=== PATIENT | female | born 1970 | race Caucasian/White ===

== ENCOUNTER → 2016-07-31 | Outpatient (REF) | payer OTHER ==
[~2016-07-31] MED LIST: KLON0.5T PO; PAXI20TA3 PO; TRAZ50TA2 PO; VENL37CA PO; VENL37TA PO; VENL75CA PO
== END ==
LOC: M LAB REF 14:12
PROVIDERS: ATTEND Physician Assistant
DX: N89.8 Other specified noninflammatory disorders of vagina (principal)

== ENCOUNTER → 2016-08-21 | Outpatient (CLI) | payer OTHER ==
--- NOTE | 2016-08-21 09:07 | REPMRS ---
Patient History The patient states she had a clinical breast exam in Family history of prostate cancer in maternal grandfather at age 50 or over. Benign US guided breast biopsy of the right breast, August 09, 2015. Digital Woman Screen Mammo: August 21, 2016 - Exam #: [id number] Bilateral CC and MLO view(s) were taken. Technologist: Dianna Espinal, Technologist Prior study comparison: August 09, 2015, right breast digital mammo diagnostic unilateral, performed at [facility]. June 12, 2014, digital bilateral screening mammo, performed at [facility]. May 19, 2013, digital woman screen mammo performed at [facility]. FINDINGS: The breast tissue is heterogeneously dense. This may lower the sensitivity of mammography. There is a moderate amount of heterogeneously dense fibroglandular tissue which is fairly symmetric. There is a needle biopsy marker clip in the right breast. There is no interval development of dominant mass, architectural distortion, or clustered microcalcification typical of malignancy. There has been no change in the appearance of the mammogram from the prior studies. ASSESSMENT: BI-RADS/ACR category 1 mammogram. Negative. Recommendation Routine screening mammogram of both breasts in 1 year (for women over age 40). This mammogram was interpreted with the aid of an FDA-approved computer-aided dectection system. Electronically Signed By: Kyle Power MD 08/21/16 0906
== END ==
LOC: M WHC 08:15
PROVIDERS: ATTEND Nurse Practitioner Women's Health
DX: Z12.31 Encounter for screening mammogram for malignant neoplasm of breast (principal)

== ENCOUNTER → 2016-08-21 | Outpatient (REF) | payer OTHER | LOC: M SFHCWAGY 11:49 | PROVIDERS: ATTEND Nurse Practitioner Women's Health | DX: Z11.3 Encounter for screening for infections with a predominantly sexual mode of transmission (principal); A59.01 Trichomonal vulvovaginitis ==

== ENCOUNTER → 2017-03-26 | Outpatient (REF) | payer OTHER | LOC: M LAB REF 07:45 | PROVIDERS: ATTEND Nurse Practitioner Adult Health | DX: N64.3 Galactorrhea not associated with childbirth (principal) ==

== ENCOUNTER → 2017-08-23 | Outpatient (REF) | payer OTHER ==
[2017-08-23 17:46] LABS: FOLLICLE STIMULATING HORMONE 26.3 mIU/mL; LUTEINIZING HORMONE 32.9 mIU/mL
== END ==
LOC: M LAB REF 16:22
DX: N64.3 Galactorrhea not associated with childbirth (principal)

== ENCOUNTER → 2017-08-24 | Outpatient (REF) | payer OTHER | LOC: M SFHCWAGY 15:57 | DX: Z12.4 Encounter for screening for malignant neoplasm of cervix (principal) ==

== ENCOUNTER → 2017-08-24 | Outpatient (CLI) | payer OTHER | LOC: M WHC 15:08 | DX: Z12.31 Encounter for screening mammogram for malignant neoplasm of breast (principal) ==

== ENCOUNTER → 2018-11-07 | Outpatient (CLI) | payer OTHER ==
--- NOTE | 2018-11-07 16:29 | REPMRS ---
Patient History The patient states she had a clinical breast exam in 10/2018. Family history of prostate cancer at age 50 or over in maternal grandfather, breast cancer under age 50 in paternal cousin. Benign US guided breast biopsy of the right breast, August 09, 2015. Took hormonal contraceptives for 1 year. Digital Woman Screen Mammo: November 07, 2018 - Exam #: [id number] Bilateral CC and MLO view(s) were taken. Technologist: Anila Israel, Technologist Prior study comparison: August 24, 2017, digital woman screen mammo performed at [facility]. August 21, 2016, digital woman screen mammo performed at [facility]. August 09, 2015, right breast digital mammo diagnostic unilateral, performed at [facility]. May 19, 2013, digital woman screen mammo performed at [facility] [facility]. FINDINGS: The breast tissue is heterogeneously dense. This may lower the sensitivity of mammography. There is a needle biopsy marker again noted in the right breast. There is a moderate amount of heterogeneously dense fibroglandular tissue which is fairly symmetric. There is no interval development of dominant mass, architectural distortion, or clustered microcalcification typical of malignancy. There has been no change in the appearance of the mammogram from the prior studies. 3-D tomosynthesis shows no additional findings. Assessment: BI-RADS/ACR category 2 mammogram. Benign Findings. Recommendation Routine screening mammogram of both breasts in 1 year (for women over age 40). This patient's Lifetime Breast Cancer RIsk is estimated at 10.9 %. This mammogram was interpreted with the aid of an FDA-approved computer-aided dectection system. Electronically Signed By: Kyle Power MD 11/07/18 [id number]
== END ==
LOC: M WHC 15:12
PROVIDERS: ATTEND Nurse Practitioner Family
DX: Z12.31 Encounter for screening mammogram for malignant neoplasm of breast (principal)

== ENCOUNTER → 2018-11-07 | Outpatient (REF) | payer OTHER ==
[2018-11-12 16:32] LABS: HPV HYBRID CAPTURE II Negative (Negative)
== END ==
LOC: M SFHCWAGY 15:36
PROVIDERS: ATTEND Nurse Practitioner Family
DX: Z12.4 Encounter for screening for malignant neoplasm of cervix (principal)
CPT/HCPCS: 87624; G0123

== ENCOUNTER → 2020-02-13 | Outpatient (CLI) | payer OTHER ==
--- NOTE | 2020-02-13 15:01 | REPMRS ---
Patient History Family history of prostate cancer at age 50 or over in maternal grandfather, breast cancer under age 50 in paternal cousin. Benign US guided breast biopsy of the right breast, August 09, 2015. Took hormonal contraceptives for 1 year. Digital Woman Screen Mammo: February 13, 2020 - Exam #: [id number] Bilateral CC and MLO view(s) were taken. Technologist: Jasmin London, Technologist Prior study comparison: November 07, 2018, bilateral digital woman screen mammo performed at [facility]. August 24, 2017, digital woman screen mammo performed at [facility]. August 21, 2016, digital woman screen mammo performed at [facility]. FINDINGS: There are scattered fibroglandular densities. The Volpara volumetric breast density category is: B. There is a moderate amount of residual fibroglandular tissue which is fairly symmetric. There is no interval development of dominant mass, architectural distortion, or grouped microcalcification typical of malignancy. There has been no change in the appearance of the mammogram from the prior studies. 3-D tomosynthesis shows no additional findings. Assessment: BI-RADS/ACR category 1 mammogram. Negative Mammogram. Recommendation Routine screening mammogram of both breasts in 1 year (for women over age 40). This patient's Lifetime Breast Cancer RIsk is estimated at 10.7 %. This mammogram was interpreted with the aid of an FDA-approved computer-aided dectection system. Electronically Signed By: Kyle Power MD 02/13/20 0678
== END ==
LOC: M WHC 13:24
PROVIDERS: ATTEND Nurse Practitioner Family
DX: Z12.31 Encounter for screening mammogram for malignant neoplasm of breast (principal); Z92.0 Personal history of contraception

== ENCOUNTER → 2020-05-20 | Outpatient (REF) | payer OTHER ==
[2020-05-21 10:15] LABS: H PYLORI QUALITATIVE IgG NEGATIVE (NEGATIVE)
[2020-05-22 18:08] LABS: Lyme Disease IgG/IgM Antibodie <0.91 ISR (0.00-0.90); Lyme Disease IgM Ab Quantitati <0.80 index (0.00-0.79)
== END ==
LOC: M LAB REF 16:37
PROVIDERS: ATTEND Nurse Practitioner Adult Health
DX: M25.50 Pain in unspecified joint (principal); R10.9 Unspecified abdominal pain

== ENCOUNTER → 2020-06-10 | Outpatient (REF) | payer OTHER | LOC: M SFHCWAGY 17:15 | PROVIDERS: ATTEND Obstetrics & Gynecology | DX: N93.9 Abnormal uterine and vaginal bleeding, unspecified (principal) ==

== ENCOUNTER → 2020-08-16 | Outpatient (CLI) | payer OTHER ==
[~2020-08-16] MED LIST changes: +BLAC40CA PO; +D31000TA2 PO; +LEXA1TAB2 PO; +PERCOCET PO; +THERTAB52 PO
== END ==
LOC: M LABSMTC 09:38
PROVIDERS: ATTEND Anesthesiology
DX: Z01.812 Encounter for preprocedural laboratory examination (principal); Z20.822 Contact with and (suspected) exposure to COVID-19

== ENCOUNTER → 2020-08-30 | Outpatient (CLI) | payer OTHER ==
[~2020-08-30] MED LIST changes: -PERCOCET PO
== END ==
LOC: M LABSMTC 11:33
PROVIDERS: ATTEND Anesthesiology
DX: Z01.812 Encounter for preprocedural laboratory examination (principal); Z20.822 Contact with and (suspected) exposure to COVID-19

== ENCOUNTER 2020-09-04 11:08 | Day surgery (SDC) | payer OTHER ==
[~2020-09-04] VITALS: Ht 152.4 cm; Wt 78.9 kg
[~2020-09-04 11:08] MED LIST changes: +LIDOCAINE 1% MDV 20ML VIAL SQ PRN; +LIDOCAINE 2% 100MG/5ML SDV (FOR ANES.) As Ordered ONE; +LR 1,000 ML IV ONE; +MIDAZOLAM INJ 2MG/2ML VIAL (J2250 PER 1MG) As Ordered ONE; +ONDANSETRON 4MG/2ML VIAL As Ordered ONE; +SILVER NITRATE APPLICATOR As Ordered ONE; +dexameTHASONE 4 MG/ML 1ML VIAL (J1100 PER 1MG) As Ordered ONE; +fentaNYL 100 MCG/2 ML INJECTION (J3010) As Ordered ONE; +propofoL 200 MG/20 ML VIAL As Ordered ONE
[2020-09-04 11:48] LABS: HEMOGLOBIN 13.9 g/dl (12.0-15.5); MEAN CORPUSCULAR HEMOGLOBIN 29.7 pg (27.0-33.0); MEAN CORPUSCULAR HGB CONC 33.9 g/dl (32.0-36.5); MEAN CORPUSCULAR VOLUME 87.6 fl (80.0-96.0); PLATELET COUNT, AUTOMATED 267 10^3/uL (150-450); RED BLOOD COUNT 4.68 10^6/uL (4.00-5.40); WHITE BLOOD COUNT 6.3 10^3/uL (4.0-10.0)
[2020-09-04] MEDS ORDERED: KETOROLAC 60MG 2ML VIAL As Ordered ONE (13:24)
[2020-09-04] MEDS ORDERED: propofoL 200 MG/20 ML VIAL As Ordered ONE (13:24)
--- NOTE | 2020-09-04 13:59 | ROOPDOC ---
[facility] Report Of Operation Report of Operation DATE OF OPERATION: 09/04/2020 PREOPERATIVE DIAGNOSIS: Abnormal uterine bleeding. POSTOPERATIVE DIAGNOSIS: Abnormal uterine bleeding PROCEDURES PERFORMED: Hysteroscopy dilatation and curettage (D&C), NovaSure endometrial ablation. SURGEON: Letty Dozier DO MAP CLERK: None. ANESTHESIA: General via laryngeal mask airway (LMA). SPECIMEN(S) SENT TO PATHOLOGY: Endometrial curettings. ESTIMATED BLOOD LOSS: 5 mL. FLUIDS REPLACED: 500 mL lactated ringers. DRAINS: In and out catheter. URINE OUTPUT: 50 mL. COMPLICATIONS: None. PREOPERATIVE ANTIBIOTICS: None indicated. INTRAOPERATIVE FINDINGS: Cavity length was 6 cm. Cavity width 3.9 cm. Power 129 calvin. Radiofrequency ablation time 47 seconds. No intrauterine masses on hysteroscopy examination. No evidence of uterine perforation post ablation. INDICATIONS FOR PROCEDURE: Abnormal uterine bleeding/persistent postmenopausal bleeding. Previous endometrial biopsy reveals benign endometrium. DESCRIPTION OF PROCEDURE: The patient was counseled and consented on the risks, benefits, indications, and alternatives of the procedure. Informed consent was obtained. She was taken to the operating room with an IV running and positioned on the operating room table in the dorsal supine position. General anesthesia was administered and airway secured without any difficulty. She was positioned in the high lithotomy position. She was prepared and draped in the normal sterile fashion. The bladder was drained with a sterile in and out catheter. A sterile speculum was placed with good visualization of the cervix. The anterior lip of the cervix was grasped with a single-tooth tenaculum. Downward traction was applied. The cervix was sequentially dilated with Shaq dilators up to a #16. The uterus was sounded to 9 cm with a cervical length of 3.0 cm. The hysteroscope was placed transcervically into the intrauterine cavity with the findings noted above. No endometrial mass. Normal intrauterine cavity. The hysteroscope was removed. A sharp curettage was performed throughout the entire intrauterine cavity with minimal tissue return. The NovaSure device was placed transcervically into the intrauterine cavity and deployed in typical fashion. A cavity assessment was performed. The cavity assessment cleared and the ablation was activated. The radiofrequency ablation time was 31 seconds. The device was removed in typical fashion without any difficulty. The hysteroscope was placed transcervically into the intrauterine cavity. Excellent intrauterine distention was noted. No evidence of uterine perforation. Global ablation was noted throughout the cavity. The hysteroscope was removed. The single-tooth tenaculum was removed. The tenaculum sites were cauterized with silver nitrate. All instruments were removed from the vagina. The patient tolerated the entire procedure very well. She was transferred to the post anesthesia care unit (PACU) in good and stable condition. Sponge and instrument counts were correct per protocol. LETTY DOZIER DO Sep 04, 2020 13:59
[2020-09-04] MEDS ORDERED: PERCOCET 5MG/325MG TAB As Ordered ONE (14:14)
[2020-09-04] MEDS ORDERED: LR 1,000 ML IV SCH (14:15)
[2020-09-04] MEDS ORDERED: PERCOCET 5MG/325MG TAB PO PRN (14:15)
[2020-09-04] MEDS ORDERED: fentaNYL 100 MCG/2 ML INJECTION (J3010) IV PRN (14:15)
[2020-09-04] MEDS ORDERED: ONDANSETRON 4MG/2ML VIAL IV PRN (14:15)
[2020-09-04] MEDS ORDERED: METOCLOPRAMIDE INJ 10MG/2ML VIAL (J2765 PER 1) IV PRN (14:15)
[2020-09-04] MEDS ORDERED: PERCOCET PO (15:08)
[2020-09-04 15:13] VITALS: BP 129/76
[2020-09-05] MEDS ORDERED: LIDOCAINE 2% 100MG/5ML SDV (FOR ANES.) As Ordered ONE (12:25)
[2020-09-05] MEDS ORDERED: propofoL 200 MG/20 ML VIAL As Ordered ONE (12:25)
== END 2020-09-04 15:13 | disposition home or self-care (01) ==
LOC: M SDC 11:08
PROVIDERS: ATTEND Obstetrics & Gynecology
DX: N93.9 Abnormal uterine and vaginal bleeding, unspecified (principal); F41.9 Anxiety disorder, unspecified; F32.9 Major depressive disorder, single episode, unspecified; Z79.899 Other long term (current) drug therapy; F17.218 Nicotine dependence, cigarettes, with other nicotine-induced disorders
CPT/HCPCS: 36415; 58563; 81025; 85027; 86850; 86900; 86901; 88305; J1100; J1885; J2250; J2405; J3010

== ENCOUNTER → 2021-05-21 | Outpatient (REF) | payer OTHER ==
[~2021-05-21] MED LIST changes: -LIDOCAINE 1% MDV 20ML VIAL SQ PRN; -LIDOCAINE 2% 100MG/5ML SDV (FOR ANES.) As Ordered ONE; -LR 1,000 ML IV ONE; -MIDAZOLAM INJ 2MG/2ML VIAL (J2250 PER 1MG) As Ordered ONE; -ONDANSETRON 4MG/2ML VIAL As Ordered ONE; +PERCOCET PO; -SILVER NITRATE APPLICATOR As Ordered ONE; -dexameTHASONE 4 MG/ML 1ML VIAL (J1100 PER 1MG) As Ordered ONE; -fentaNYL 100 MCG/2 ML INJECTION (J3010) As Ordered ONE; -propofoL 200 MG/20 ML VIAL As Ordered ONE
== END ==
LOC: M LAB REF 16:34
PROVIDERS: ATTEND Nurse Practitioner Adult Health
DX: L81.8 Other specified disorders of pigmentation (principal)

== ENCOUNTER → 2021-05-23 | Outpatient (REF) | payer OTHER | LOC: M LAB REF 11:12 | PROVIDERS: ATTEND Nurse Practitioner Adult Health | DX: L68.0 Hirsutism (principal) ==

== ENCOUNTER → 2021-10-22 | Outpatient (CLI) | payer OTHER ==
[~2021-10-22] MED LIST changes: -D31000TA2 PO; +VITA100093 PO
== END ==
LOC: M WHC 10:31
PROVIDERS: ATTEND Obstetrics & Gynecology
DX: Z12.31 Encounter for screening mammogram for malignant neoplasm of breast (principal); N63.20 Unspecified lump in the left breast, unspecified quadrant

== ENCOUNTER → 2021-10-22 | Outpatient (REF) | payer OTHER | LOC: M SFHCWAGY 12:48 | PROVIDERS: ATTEND Obstetrics & Gynecology | DX: Z12.4 Encounter for screening for malignant neoplasm of cervix (principal) ==

== ENCOUNTER → 2021-10-29 | Outpatient (CLI) | payer OTHER | LOC: M WHC 10:55 | PROVIDERS: ATTEND Obstetrics & Gynecology | DX: R92.8 Other abnormal and inconclusive findings on diagnostic imaging of breast (principal); N60.12 Diffuse cystic mastopathy of left breast | CPT/HCPCS: 76642; 77065; G0279 ==

== ENCOUNTER → 2021-12-10 | Outpatient (REF) | payer OTHER ==
[2021-12-10 17:47] LABS: C REACTIVE PROTEIN QUANTITATIV 0.33 MG/DL (0.00-0.30); RHEUMATOID FACTOR QUANT < 10.0 IU/ML (<15.0)
== END ==
LOC: M LAB REF 16:51
PROVIDERS: ATTEND Physician Assistant Medical
DX: M79.7 Fibromyalgia (principal); R53.83 Other fatigue

== ENCOUNTER → 2022-05-21 | Outpatient (CLI) | payer OTHER | LOC: M PLAIMG 15:47 | PROVIDERS: ATTEND Physician Assistant Medical | DX: M25.532 Pain in left wrist (principal) ==

== ENCOUNTER → 2022-05-21 | Outpatient (CLI) | payer OTHER | LOC: M PLAIMG 15:45 | PROVIDERS: ATTEND Nurse Practitioner Adult Health | DX: M54.2 Cervicalgia (principal); M47.812 Spondylosis without myelopathy or radiculopathy, cervical region ==

== ENCOUNTER → 2022-09-15 | Outpatient (CLI) | payer OTHER ==
[~2022-09-15] MED LIST changes: +CYMB60CA4 PO; +GABA-282 PO; +LEXA1TAB2; +OZEM2INJ; +TRAZ-252 PO
== END ==
LOC: M LABSMTC 08:57
PROVIDERS: ATTEND Anesthesiology
DX: Z01.812 Encounter for preprocedural laboratory examination (principal); Z11.52 Encounter for screening for COVID-19

== ENCOUNTER 2022-09-18 06:19 | Day surgery (SDC) | payer OTHER ==
[~2022-09-18] VITALS: Ht 152.4 cm; Wt 75.3 kg
[~2022-09-18 06:19] MED LIST changes: +NS 1,000 ML IV ONE
[2022-09-18] MEDS ORDERED: propofoL 200 MG/20 ML VIAL As Ordered ONE ×2 (07:07→07:52)
[2022-09-18] MEDS ORDERED: LIDOCAINE 2% 100MG/5ML SDV (FOR ANES.) As Ordered ONE (07:07)
[2022-09-18 08:20] VITALS: BP 112/71
== END 2022-09-18 08:27 | disposition home or self-care (01) ==
LOC: M OPP 06:19
PROVIDERS: ATTEND Surgery
DX: Z12.11 Encounter for screening for malignant neoplasm of colon (principal); Z80.0 Family history of malignant neoplasm of digestive organs; K64.0 First degree hemorrhoids; F32.9 Major depressive disorder, single episode, unspecified; F41.9 Anxiety disorder, unspecified; G43.909 Migraine, unspecified, not intractable, without status migrainosus; M35.00 Sjogren syndrome, unspecified; F17.200 Nicotine dependence, unspecified, uncomplicated; Z87.42 Personal history of other diseases of the female genital tract; Z79.891 Long term (current) use of opiate analgesic; Z79.899 Other long term (current) drug therapy

== ENCOUNTER → 2022-10-27 | Outpatient (CLI) | payer OTHER ==
[~2022-10-27] MED LIST changes: -NS 1,000 ML IV ONE
== END ==
LOC: M WHC 14:05
PROVIDERS: ATTEND Obstetrics & Gynecology
DX: Z12.31 Encounter for screening mammogram for malignant neoplasm of breast (principal); Z80.3 Family history of malignant neoplasm of breast; Z80.42 Family history of malignant neoplasm of prostate; Z80.0 Family history of malignant neoplasm of digestive organs

== ENCOUNTER → 2022-10-27 | Outpatient (REF) | payer OTHER | LOC: M SFHCWAGY 17:49 | PROVIDERS: ATTEND Obstetrics & Gynecology | DX: Z12.4 Encounter for screening for malignant neoplasm of cervix (principal) | CPT/HCPCS: 87624; G0123 ==

== ENCOUNTER → 2022-11-18 | Outpatient (CLI) | payer OTHER | LOC: M PLAIMG 16:16 | PROVIDERS: ATTEND Internal Medicine | DX: M25.551 Pain in right hip (principal); M79.651 Pain in right thigh ==

== ENCOUNTER → 2023-03-22 | Outpatient (CLI) | payer OTHER | LOC: M PLAIMG 16:09 | PROVIDERS: ATTEND Physician Assistant Medical | DX: M54.2 Cervicalgia (principal); M47.812 Spondylosis without myelopathy or radiculopathy, cervical region ==

== ENCOUNTER → 2023-04-29 | Outpatient (CLI) | payer OTHER | LOC: M PLAIMG 06:32 | PROVIDERS: ATTEND Orthopaedic Surgery | DX: M47.22 Other spondylosis with radiculopathy, cervical region (principal); Z98.1 Arthrodesis status; M48.02 Spinal stenosis, cervical region ==

== ENCOUNTER → 2023-08-23 | Outpatient (REF) | payer OTHER ==
[2023-08-23 17:55] LABS: RSV AMPLIFICATION NEGATIVE (NEGATIVE)
== END ==
LOC: M LAB REF 16:12
PROVIDERS: ATTEND Internal Medicine
DX: R09.81 Nasal congestion (principal)

== ENCOUNTER → 2024-03-07 | Outpatient (REF) | payer OTHER ==
[2024-03-09 14:43] LABS: HPV APTIMA Not Detected (Not Detected)
== END ==
LOC: M SFHCWAGY 15:06
PROVIDERS: ATTEND Obstetrics & Gynecology
DX: Z12.4 Encounter for screening for malignant neoplasm of cervix (principal)
CPT/HCPCS: 87624; G0123

== ENCOUNTER → 2024-03-07 | Outpatient (CLI) | payer OTHER | LOC: M WHC 09:06 | PROVIDERS: ATTEND Obstetrics & Gynecology | DX: Z12.31 Encounter for screening mammogram for malignant neoplasm of breast (principal); R92.333 Mammographic heterogeneous density, bilateral breasts ==

== ENCOUNTER → 2024-08-25 | Outpatient (REF) | payer OTHER ==
[~2024-08-25] MED LIST changes: +GABA-1172 PO; -GABA-282 PO
[2024-08-28 15:42] LABS: PERCENT SATURATION 7.3 % (13.2-45.0)
[2024-08-28 15:44] LABS: FERRITIN 5.2 NG/ML (7.3-270.7)
== END ==
LOC: M LAB REF 12:19
PROVIDERS: ATTEND Internal Medicine
DX: D64.9 Anemia, unspecified (principal)